=== PATIENT | female | born 1960 | race Caucasian/White ===

== ENCOUNTER → 2016-10-23 | Outpatient (CLI) | payer OTHER | LOC: FIMAGING 07:06 | PROVIDERS: ATTEND Orthopaedic Surgery | DX: M75.112 Incomplete rotator cuff tear or rupture of left shoulder, not specified as traumatic (principal); M75.82 Other shoulder lesions, left shoulder; M25.512 Pain in left shoulder; M54.5 Low back pain; M43.07 Spondylolysis, lumbosacral region; M43.17 Spondylolisthesis, lumbosacral region ==

== ENCOUNTER 2017-01-01 09:05 | Day surgery (SDC) | payer OTHER ==
--- NOTE | 2017-01-01 07:02 | PDHPUP ---
History & Physical Update H&P update statement: This history and physical update is based on an assessment of the patient which was completed after admission or registration (within 24 hours), but prior to the surgery/procedure. H&P update: H&P reviewed & patient examined, no change in patient's condition since H&P completed
[~2017-01-01 09:05] MED LIST: ACETAMINOPHEN 500 MG TAB PO ONE; LR 1,000 ML IV SCH; ONDANSETRON 4 MG/2 ML VIAL IVP PRN; ONDANSETRON DISINTEGRATING 4 MG TAB PO PRN; OXYCODONE/APAP 5/325 TAB PO PRN; ceFAZolin 2 GM/DEXTROSE 100 ML IV ONE
[2017-01-01] MEDS ORDERED: CEFAZOLIN 2 GM/DEXTROSE/100 ML BAG IV ONE (09:37)
[2017-01-01] MEDS ORDERED: ACETAMINOPHEN 500 MG TAB ONE (09:37)
[2017-01-01] MEDS ORDERED: LR 1,000 ML IV ONE (09:46)
[2017-01-01] MEDS ORDERED: MIDAZOLAM 2 MG/2 ML VIAL ONE (10:19)
--- NOTE | 2017-01-01 11:23 | PDANEPAE ---
ANE History of Present Illness Impingement ANE Past Medical History - Cardiovascular History Hx Hypertension: Yes Hx Arrhythmias: No Hx Chest Pain: No Hx Coronary Artery / Peripheral Vascular Disease: No Hx CHF / Valvular Disease: No Hx Palpitations: No - Pulmonary History Hx COPD: No Hx Asthma/Reactive Airway Disease: No Hx Recent Upper Respiratory Infection: No Hx Oxygen in Use at Home: No - Neurologic History Hx Cerebrovascular Accident: No Hx Seizures: Yes Hx Dementia: No - Endocrine History Hx Diabetes: No - Renal History Hx Renal Disorders: No - Liver History Hx Hepatic Disorders: No - Neurological & Psychiatric Hx Hx Neurological and Psychiatric Disorders: Yes - Cancer History Hx Cancer: No - Congenital Disorder History Hx Congenital Disorders: No - GI History Hx Gastrointestinal Disorders: No - Chronic Pain History Chronic Pain: No ANE Review of Systems - Exercise capacity METS (RN): 4 METS - Systems Hematologic/Lymphatic: Reports: other (Decreased platelets) ANE Patient History - Allergies Allergies/Adverse Reactions: Sulfa (Sulfonamide Antibiotics) Allergy (Mild, Verified 12/26/16 11:53) Rash - Home Medications Home Medications: Levothyroxine 12/26/16 [Last Taken 01/01/17 07:00] Lisinopril 12/26/16 [Last Taken 12/31/16 21:30] VIMPAT 12/26/16 [Last Taken 01/01/17 09:00] - NPO status NPO Since - Liquids (Date): 12/31/16 NPO Since - Liquids (Time): 21:00 NPO Since - Solids (Date): 12/31/16 NPO Since - Solids (Time): 20:00 - Smoking Hx Smoking Status: Never smoked ANE Labs/Vital Signs - Vital Signs Blood Pressure: 158/87 Heart Rate: 101 Respiratory Rate: 16 O2 Sat (%): 95 Height: 157.48 cm Weight: 77.111 kg ANE Physical Exam - Airway Neck exam: FROM Mouth exam: normal dental/mouth exam - Pulmonary Pulmonary: no respiratory distress - Cardiovascular Cardiovascular: regular rate and rhythym - ASA Status ASA Status: II
[2017-01-01] MEDS ORDERED: MIDAZOLAM 2 MG/2 ML VIAL IVP ONE (11:31)
[2017-01-01] MEDS ORDERED: NALOXONE HCL 0.4 MG/ML INJ IVP PRN ×2 (11:31→12:58)
[2017-01-01] MEDS ORDERED: LIDOCAINE 2% 5 ML SDV ONE (12:04)
[2017-01-01] MEDS ORDERED: fentaNYL 100 MCG/2 ML INJ ONE ×2 (12:05→13:00)
[2017-01-01] MEDS ORDERED: PROPOFOL 200 MG/20 ML VIAL ONE (12:05)
[2017-01-01] MEDS ORDERED: LIDOCAINE 2% JELLY 5 ML TUBE ONE (12:07)
[2017-01-01] MEDS ORDERED: BUPIVACAINE/EPI 0.5% 30 ML SDV ONE (12:09)
[2017-01-01] MEDS ORDERED: DEXAMETHASONE 4 MG/ML VIAL ONE (12:32)
[2017-01-01] MEDS ORDERED: ONDANSETRON 4 MG/2 ML VIAL ONE (12:32)
[2017-01-01] MEDS ORDERED: fentaNYL 100 MCG/2 ML INJ IVP PRN (12:58)
--- NOTE | 2017-01-01 13:35 | POSTANESTH ---
Post Anesthetic Evaluation Cardiovascular Status: Normal, Stable Respiratory Status: Normal, Stable Level of Consciousness/Mental Status: Can Participate in Eval Pain Control: Adequate, Prn Tx Ordered Nausea/Vomiting Control: Adequate, Prn Tx Ordered Complications Possibly Related to Anesthesia: None Noted
[2017-01-01 14:56] VITALS: TEMP 97.7
[2017-01-01 15:48] VITALS: BP 150/91; PULSE 83; RESP 18
[2017-01-01 16:15] VITALS: O2SAT 99
== END 2017-01-01 16:15 | disposition home or self-care (01) ==
LOC: FSGY 09:05
PROVIDERS: ATTEND Orthopaedic Surgery
DX: M75.42 Impingement syndrome of left shoulder (principal)
CPT/HCPCS: J0690; J1100; J2250; J2405; J2704; J3010

== ENCOUNTER → 2017-05-17 | Outpatient (CLI) | payer OTHER | LOC: BMCIMAGING 12:37 | PROVIDERS: ATTEND Internal Medicine | DX: Z12.31 Encounter for screening mammogram for malignant neoplasm of breast (principal) | CPT/HCPCS: G0202 ==

== ENCOUNTER → 2018-06-13 | Outpatient (CLI) | payer OTHER | LOC: FIMAGING 14:44 | PROVIDERS: ATTEND Internal Medicine | DX: Z12.31 Encounter for screening mammogram for malignant neoplasm of breast (principal) ==